=== PATIENT | female | born 1970 | race Caucasian/White ===

== ENCOUNTER 2020-10-11 09:03 | Day surgery (SDC) | payer MEDICAID, SELFPAY ==
[~2020-10-11] VITALS: Ht 154.9 cm; Wt 72.6 kg
[2020-10-11] MEDS ORDERED: MIDAZOLAM HCL 5 MG/5 ML VIAL IVP ONE (12:05)
[2020-10-11] MEDS ORDERED: fentaNYL CITRATE/PF 100 MCG/2 ML AMP IVP ONE (12:05)
[2020-10-11] MEDS ORDERED: KETOROLAC TROMETHAMINE 30 MG VIAL IVP ONE (12:05)
[2020-10-11] MEDS ORDERED: PROPOFOL 200MG/ 20ML VIAL (DIPRIVAN) IV ONE (12:05)
[2020-10-11] MEDS ORDERED: LR 1,000 ML IV.SOLN IV ONE (12:05)
[2020-10-11] MEDS ORDERED: NS IRRIG SOLN 5000 ML IR ONE (12:05)
[2020-10-11] MEDS ORDERED: SEVOFLURANE 15 MIN GAS INH ONE (12:05)
[2020-10-11] MEDS ORDERED: HYDROmorphone 1 MG/ML INJ. CARTRIDGE IVP PRN (12:45)
[2020-10-11] MEDS ORDERED: METOCLOPRAMIDE HCL 10 MG/2 ML VIAL IVP PRN (12:45)
[2020-10-11] MEDS ORDERED: KETOROLAC TROMETHAMINE 30 MG VIAL IVP PRN (12:45)
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
[2020-10-11 15:26] VITALS: BP_SYST 135
== END 2020-10-11 15:25 | disposition home or self-care (01) ==
LOC: SMU 09:03 → SDS 09:03
PROVIDERS: ATTEND Obstetrics & Gynecology
DX: N95.0 Postmenopausal bleeding (principal); R93.89 Abnormal findings on diagnostic imaging of other specified body structures; E03.9 Hypothyroidism, unspecified; F41.9 Anxiety disorder, unspecified; N84.0 Polyp of corpus uteri; Z79.899 Other long term (current) drug therapy
CPT/HCPCS: 36415 ×2; 58558; 86886; 86900; 86901; 87426; 88305; C1819; J1885; J2250; J2704; J3010; J7120